=== PATIENT | male | born 1990 | race Caucasian/White ===

== ENCOUNTER → 2022-07-24 | Outpatient (CLI) | payer OTHER ==
--- NOTE | 2022-07-25 06:30 | MR ---
EXAMINATION TYPE: MR knee LT wo con DATE OF EXAM: 07/24/2022 COMPARISON: Outside left knee x-ray July 15, 2022 HISTORY: Lt knee pain and swelling for 10 years TECHNIQUE: Multiplanar, multisequence images of the knee is performed without IV contrast. FINDINGS: MEDIAL MENISCUS: Anterior and posterior horns are intact without tear. LATERAL MENISCUS: Anterior and posterior horns are intact without tear. CRUCIATE LIGAMENTS: The anterior and posterior cruciate ligaments are intact and unremarkable. COLLATERAL LIGAMENTS: The medial collateral ligament and lateral collateral ligament complex are inta ct and unremarkable. EXTENSOR MECHANISM: Visualized quadriceps and patellar tendons are intact. EFFUSION: No significant suprapatellar joint effusion. POPLITEAL CYST: No popliteal/tobar cyst. TRICOMPARTMENT SPACES: Tricompartmental joint spaces are preserved. Mild spurring medial tibiofemoral compartment. CARTILAGE: Tricompartmental articular cartilage is maintained. BONE MARROW SIGNAL: No focal abnormal marrow signal is appreciated. OTHER: No additional significant abnormality is appreciated. IMPRESSION: No meniscal or ligamentous tear is seen.
== END | disposition home or self-care (01) ==
LOC: RADMRIMAIN 17:15
PROVIDERS: ATTEND Orthopaedic Surgery
DX: M25.562 Pain in left knee (principal)

== ENCOUNTER → 2022-08-23 | Outpatient (CLI) | payer OTHER ==
[2022-08-23 16:39] LABS: Anion Gap 11.7 mmol/L (4.00-12.00); Carbon Dioxide 23.3 mmol/L (21.6-31.8); Potassium 3.9 mmol/L (3.5-5.5)
[2022-08-23 17:36] LABS: Basophils # (A) 0.02 X 10*3/uL (0.00-0.10); Basophils % (A) 0.4 %; Eosinophils # (A) 0.14 X 10*3/uL (0.04-0.35); Eosinophils % (A) 2.5 %; HCT 46.9 % (39.6-50.0); HGB 15.4 d/dL (12.0-15.0); Lymphocytes # (A) 2.81 X 10*3/uL (0.90-5.00); Lymphocytes % (A) 49.8 %; MCH 29.1 pg (27.0-32.0); MCHC 32.8 d/dL (32.0-37.0); MCV 88.5 FL (80.0-97.0); Mean Platelet Volume 10.5 FL (9.5-12.2); Monocytes # (A) 0.35 X 10*3/uL (0.20-1.00); Monocytes % (A) 6.2 %; NRBC Per 100 WBC 0 X 10*3/uL (0.00-0.01); Neutrophils # (A) 2.31 X 10*3/uL (1.80-7.70); Neutrophils % (A) 40.9 %; Platelet Count 263 X 10*3/uL (140-440); RDW 12.7 % (11.5-14.5); WBC 5.64 X 10*3/uL (4.50-10.00)
== END | disposition home or self-care (01) ==
LOC: LABPAT 10:45
PROVIDERS: ATTEND Orthopaedic Surgery
DX: Z01.812 Encounter for preprocedural laboratory examination (principal); M23.92 Unspecified internal derangement of left knee
CPT/HCPCS: 36415; 80051; 85025

== ENCOUNTER → 2022-12-12 | Outpatient (CLI) | payer OTHER ==
--- NOTE | 2022-12-14 07:49 | MR ---
EXAMINATION TYPE: MR shoulder LT wo con DATE OF EXAM: 12/12/2022 COMPARISON: None. HISTORY: Left shoulder pain with difficulty raising arm overhead for 4 to 5 months. TECHNIQUE: Multiplanar, multisequence imaging of the left shoulder is performed without contrast. FINDINGS: Rotator Cuff: Intact distal supraspinatus and infraspinatus tendons. Intact subscapularis tendon. Rot ator cuff muscle bulk is preserved. Acromioclavicular Joint: At least moderate narrowing and capsular hypertrophy. No significant spurrin g. There is increased T2 signal at this level. Glenohumeral Joint: No significant effusion or spurring. Labrum: The labrum appears grossly intact given limitation of non-arthrogram study. Biceps Tendon: The long head of biceps is in normal location within bicipital groove. Bone marrow signal: No focal abnormal marrow signal is appreciated. Other: No additional significant abnormality is appreciated. IMPRESSION: 1. No rotator cuff or labral tear is seen. 2. Degenerative and possible inflammatory changes involving the acromioclavicular joint, correlate cl inically.
== END | disposition home or self-care (01) ==
LOC: RADMRIMAIN 21:15
DX: M19.012 Primary osteoarthritis, left shoulder (principal)

== ENCOUNTER 2022-12-27 08:22 | Day surgery (SDC) | payer OTHER ==
--- NOTE | 2022-12-26 08:45 | P.HPOR ---
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 He notes lateral pain along with intermittent buckling and swelling. He has previously done therapy in addition to taking medications out much relief. He notes daily pain and symptoms. Review of Systems Negative except as in HPI Past Medical History Past Medical History: No Reported History Additional Past Medical History / Comment(s): Gout, migraines History of Any Multi-Drug Resistant Organisms: None Reported Past Surgical History: No Surgical Hx Reported Additional Past Surgical History / Comment(s): Pt. has never had surgery/ anesthesia. Past Anesthesia/Blood Transfusion Reactions: No Reported Reaction Smoking Status: Never smoker - Past Family History Father Family Medical History: Cancer Additional Family Medical History / Comment(s): prostate Ca Medications and Allergies Home Medications Medication Instructions Recorded Confirmed Type No Known Home Medications 12/25/22 12/25/22 History Allergies Allergy/AdvReac Type Severity Reaction Status Date / Time Penicillins Allergy Rash/Hives Verified 12/25/22 13:33 Physical Examination - Knee left Appearance: effusion Effusion grade: trace Tenderness with palpation: lateral Pain: throughout ROM Gait: limping ROM: extension: -5 degrees ROM: flexion: 120 degrees Crepitus with motion: Yes Strength: extension: 5/5 Strength: flexion: 5/5 Meniscal tests: lateral meniscal tests: positive, lateral joint line pain: positive Results The patient is a well-developed well-nourished male approximately 6 foot 3, 315 pounds of endomorphic habitus. HEENT exam is nonfocal, neck is supple. He has painless passive motion of the left hip. Straight leg raise is negative. On examination of his left knee, he is tender about the lateral joint line. Collaterals are stable, Christiano was negative, Jair's elicits lateral pain. His distal neurovascular appears intact left lower extremity. - Diagnostic results Knee MRI: image reviewed (Left knee MRI is reviewed and shows evidence of increased signal involving the posterior lateral meniscus along with the lateral femoral condyle chondral injury.) Assessment and Plan Assessment: Left knee internal derangement/possible lateral meniscal tear/possible lateral femoral condyle chondral injury Plan: I talked with the patient regarding his condition along with treatment options. At this point he is having persistent pain and mechanical symptoms despite previous conservative measures. After a thorough discussion he opts to proceed with surgery. We'll plan to proceed with left knee arthroscopy with possible partial lateral meniscectomy addition to lateral femoral chondrectomy was possible microfracture. Risks and benefits were discussed at length and hamstrings. We will likely perform that as an outpatient procedure.
[~2022-12-27 08:22] MED LIST: DEXAMETHASONE SOD PHOSPHATE 4 MG/ML 1 ML VIAL IV ONE; HYDROmorphone 0.5 MG/0.5 ML SYRINGE IVP PRN; LACTATED RINGERS 1,000 ML IV SCH; MIDAZOLAM 2 MG/2 ML VIAL IV PRN; ONDANSETRON 4 MG/2 ML VIAL IVP ONE; SCOPOLAMINE 1 MG/72 HR PATCH TRANSDERM ONE; ceFAZolin 3 GM in SODIUM CHLORIDE 0.9% 100 ML IVPB PRN
[2022-12-27 09:05] LABS: HCT 44.6 % (39.0-53.0); HGB 15.2 gm/dL (13.0-17.5); MCH 30.1 pg (25.0-35.0); MCHC 34.2 g/dL (31.0-37.0); Mean Platelet Volume 8.1; Platelet Count 275 k/uL (150-450); RBC 5.06 m/uL (4.30-5.90); RDW 12.8 % (11.5-15.5); WBC 5.7 k/uL (3.8-10.6)
[2022-12-27] MEDS ORDERED: MIDAZOLAM 2 MG/2 ML VIAL IVP ONE ×2 (09:05→09:35)
[2022-12-27] MEDS ORDERED: fentaNYL (PF) 50 MCG/ML 2 ML AMP IVP ONE ×2 (09:05→09:55)
[2022-12-27] MEDS ORDERED: KETOROLAC 15 MG/ML 1 ML VIAL ONE (10:35)
[2022-12-27] MEDS ORDERED: PROPOFOL 10 MG/ML 20 ML VIAL IV ONE (10:35)
[2022-12-27] MEDS ORDERED: fentaNYL (PF) 50 MCG/ML 2 ML AMP ONE (10:35)
[2022-12-27] MEDS ORDERED: LIDOCAINE 1% INJ 10MG/ML (20 ML MDV) ONE (10:35)
[2022-12-27] MEDS ORDERED: MIDAZOLAM 2 MG/2 ML VIAL ONE (10:35)
[2022-12-27] MEDS ORDERED: EPINEPHrine (PF) 1 ML in SODIUM CHLORIDE 0.9% IRRIGATIO 3,000 ML IRRIGATION ONE (11:11)
[2022-12-27] MEDS ORDERED: LACTATED RINGERS 1,000 ML IV ONE (11:19)
--- NOTE | 2022-12-27 11:39 | P.OP ---
Date of Procedure: 12/27/22 Preoperative Diagnosis: Left knee internal derangement Postoperative Diagnosis: Left knee posterior lateral meniscal tear/grade 3 chondral injury distal posterior lateral femoral condyle Procedure(s) Performed: Left knee arthroscopic partial medial meniscectomy/microfracture lateral femoral condyle Anesthesia: MARISA Surgeon: Dylan Montoya Estimated Blood Loss (ml): 10 Pathology: none sent Condition: stable Disposition: PACU Indications for Procedure: The patient's a 32-year-old male presents with progressive left knee pain and mechanical symptoms after a previous injury despite attempted conservative measures. A discussion of the risks and benefits of operative intervention versus continued conservative measures was made with patient. He opted to proceed with surgery. Operative risks to include infection, neurovascular injury, development of blood clots, possible incomplete resolution of symptoms, possible worsening symptoms and need for subsequent procedures was discussed. Informed consent was obtained. Operative Findings: As below Description of Procedure: The patient was brought to the operating room, and after induction of general anesthesia examined the left knee. Collaterals were stable, Christiano was negative, and posterior drawer was negative. The left lower extremity was prepped and draped in a normal fashion. A superior lateral portal was made through a 3 mm skin incision superior and lateral to the patella. This was used for outflow. A lateral portal was made through a 5 mm vertical skin incision lateral to the patella tendon above the joint line. Diagnostic arthroscopy was performed. On inspection of the medial compartment , no significant meniscal or cartilage pathology was noted. . On inspection of the notch, the anterior cruciate ligament appeared to be intact. On inspection of the lateral compartment, a complex tear involving the posterior to middle one third of the lateral meniscus was noted in the white-white junction. This was debrided back to stable base with straight baskets and motorized shaver. An 8 x 8 mm grade 3 chondral injury was noted involving the distal lateral portion of the lateral femoral condyle. Loose chondral fragments were debrided back with a motorized shaver. A power pick was utilized to perform microfracture on the distal posterior lateral femoral condyle reaching the subchondral surface down to the bone marrow elements. On inspection of the patellofemoral articulation, there was chondral fibrillation however no loose chondral fragments. The gutters were clear debris. The knee was then thoroughly irrigated. The portals were closed with Steri-Strips. A sterile dressing was applied in addition to a compression stocking. The patient was awoken from general anesthesia and transferred to recovery room in good condition. Blood loss was estimated at 10 mL. No complications were incurred.
[2022-12-27 11:52] VITALS: TEMP 97
[2022-12-27 12:37] VITALS: RESP 20
[2022-12-27] MEDS ORDERED: HYDROcodone/APAP 7.5-325MG 1 EACH TAB ONE (12:41)
[2022-12-27 13:00] VITALS: BP 123/72; PULSE 80
== END 2022-12-27 13:34 | disposition home or self-care (01) ==
LOC: OR 08:22
PROVIDERS: ATTEND Orthopaedic Surgery
DX: S83.282A Other tear of lateral meniscus, current injury, left knee, initial encounter (principal); M10.9 Gout, unspecified; M19.90 Unspecified osteoarthritis, unspecified site; G47.33 Obstructive sleep apnea (adult) (pediatric); G43.909 Migraine, unspecified, not intractable, without status migrainosus; Y93.61 Activity, american tackle football; Z80.9 Family history of malignant neoplasm, unspecified; Z88.0 Allergy status to penicillin; X58.XXXA Exposure to other specified factors, initial encounter
CPT/HCPCS: 29881; 29879; 80051; 85027; J2250; J1100; J0690; J2405; J0171; J2001; J3010; J1885; J2704